=== PATIENT | male | born 2000 | race African-American/Black ===

== ENCOUNTER 2021-08-04 15:44 | Inpatient (IN) ==
[2021-08-04 17:11] LABS: ABS Eosinophils 0.1 10^3/ul (0-0.6); ABS Monocytes 0.2 10^3/ul (0-0.8); ABS Neutrophils 2.5 10^3/ul (1.5-7.7); Eosinophil % 1.7 %; Hematocrit 48 % (42-52); Lymphocyte % 41.2 %; Mean Corpuscular HGB Conc 34 g/dL (31-36); Mean Corpuscular Hemoglobin 30 pg (27-31); Mean Corpuscular Volume 89 fL (80-94); Nucleated Red Blood Cells % 0.1; Platelet Count 268 10^3/uL (150-450); Red Blood Count 5.33 10^6 /uL (4.18-5.48); Red Cell Distribution Width 14 % (10-15); White Blood Count 4.8 10^3/uL (3.5-10.8)
[2021-08-04 18:28] LABS: TSH Ultra Thyroid Stim Horm 0.81 mcIU/mL (0.34-5.60)
[2021-08-04 18:52] LABS: Acetaminophen < 15 mcg/mL; Alcohol, S < 13 mg/dL (<13); Salicylate < 2.50 mg/dL (<30)
[2021-08-04 19:11] LABS: Albumin 4.5 g/dL (3.2-5.2); Anion Gap 11 mmol/L (2-11); CO2 Carbon Dioxide 26 mmol/L (22-32); Calcium 9.5 mg/dL (8.6-10.3); Chloride 106 mmol/L (101-111); Potassium 4.5 mmol/L (3.5-5.0); Sodium 143 mmol/L (135-145)
[2021-08-04 19:17] LABS: ALT 50 U/L (7-52); AST 26 U/L (13-39); Albumin/Globulin Ratio 2.1 (1-3); Alkaline Phosphatase 81 U/L (35-149); Blood Urea Nitrogen 12 mg/dL (6-24); Globulin 2.1 g/dL (2-4); Glucose 113 mg/dL (70-100); Total Protein 6.6 g/dL (6.4-8.9)
[2021-08-04 22:32] LABS: Urine Appearance Cloudy; Urine Bilirubin Negative (Negative); Urine Blood Negative (Negative); Urine Color Yellow; Urine Glucose Negative (Negative); Urine Ketones Negative (Negative); Urine Nitrite Negative (Negative); Urine Protein 1+(30 mg/dL) (Negative); Urine Specific Gravity 1.028 (1.002-1.030); Urine Urobilinogen Negative (Negative)
[2021-08-04 22:36] LABS: Urine Bacteria 1+ (Absent); Urine Red Blood Cell 3+(>10/hpf) (Absent); Urine White Blood Cell 2+(11-20/hpf) (Absent)
[2021-08-04 22:48] LABS: Urine Benzodiazepine Screen None Detected (None Detect); Urine Cannabinoids Screen None Detected (None Detect); Urine Opiates Screen None Detected (None Detect)
[2021-08-05] MEDS ORDERED: Al Hydrox/Mg Hydrox/Simet LIQ 30 ML UDC PO PRN (01:39)
[2021-08-05] MEDS: Vitamin THERAPEUTIC TAB PO SCH (08:25)
[2021-08-05 13:31] LABS: Vitamin B12 181 pg/mL (180-914)
[2021-08-05 13:34] LABS: Vitamin D Total 25(OH) 15.4 ng/mL (20-50)
[2021-08-05 22:55] LABS: Rapid COVID-19 Molecular Undetected (Undetected)
[2021-08-06 07:53] LABS: HDL Cholesterol 40.7 mg/dL
[2021-08-06] MEDS: Vitamin THERAPEUTIC TAB PO SCH (09:48)
[2021-08-06] MEDS: Cholecalciferol (VIT D3) 1,000 unit TAB PO SCH (16:41)
[2021-08-07] MEDS: Cholecalciferol (VIT D3) 1,000 unit TAB PO SCH (08:57)
[2021-08-07] MEDS: Vitamin THERAPEUTIC TAB PO SCH (08:58)
[2021-08-07] MEDS ORDERED: Gadoteridol (CONTRAST) 279.3 MG/ML 10 ML IV ONE (17:32)
[2021-08-08 09:36] VITALS: BP 141/75
[2021-08-08] MEDS: Cholecalciferol (VIT D3) 1,000 unit TAB PO SCH (10:21)
[2021-08-08] MEDS: Vitamin THERAPEUTIC TAB PO SCH (10:21)
== END 2021-08-08 18:20 | disposition home or self-care (01) | DRG 882 ==
LOC: ED 15:44 → BSU 08-05 01:08
PROVIDERS: ADMIT Psychiatry & Neurology Psychiatry; ATTEND Psychiatry & Neurology Psychiatry